=== PATIENT | female | born 1960 | race African-American/Black ===

== ENCOUNTER 2017-02-12 12:40 | Emergency (ER) | payer MEDICAID ==
[~2017-02-12] VITALS: Ht 165.1 cm; Wt 82.0 kg
[2017-02-12] MEDS ORDERED: PHEN100C4 PO (12:43)
[2017-02-12] MEDS ORDERED: KETOROLAC 60MG/2ML VIAL IM ONE (18:45)
[2017-02-12 18:46] LABS: BASOPHILS % 0.6 % (0.0-2.0); EOSINOPHILS % 0.2 % (0.0-5.0); LYMPHOCYTES % 12.9 % (20.0-50.0); MEAN CORPUSCULAR VOLUME 88.3 fL (81.0-99.0); MONOCYTES % 10.9 % (2.0-8.0); NEUTROPHILS % 75.4 % (40.0-76.0); PLATELET 185 x1000/uL (130-400); RED BLOOD CELL COUNT 5.33 mill/uL (4.2-5.4); RED CELL DISTRIBUTION WIDTH 14.7 % (11.6-14.6)
[2017-02-12 18:56] LABS: CHLORIDE 106 mEq/L (98-107)
[2017-02-12 19:02] LABS: CARBON DIOXIDE 29 mEq/L (21-32)
[2017-02-12 20:00] VITALS: BP 136/90
== END 2017-02-12 21:50 | disposition home or self-care (01) ==
LOC: ER 13:08
DX: M79.604 Pain in right leg (principal); G40.909 Epilepsy, unspecified, not intractable, without status epilepticus; I10 Essential (primary) hypertension; J45.909 Unspecified asthma, uncomplicated
CPT/HCPCS: 36415; 80048; 80185; 85025; 96372; 99284; J1885; Z7610

== ENCOUNTER 2018-01-26 09:17 | Emergency (ER) | payer MEDICAID ==
[~2018-01-26] VITALS: Ht 162.6 cm; Wt 55.0 kg
[~2018-01-26 09:17] MED LIST: FOLI-43 PO; PHEN100C4 PO; THIA100T72 PO
[2018-01-26 09:26] VITALS: BP 132/93
== END 2018-01-26 12:03 | disposition home or self-care (01) ==
LOC: ER 09:17
DX: S01.511A Laceration without foreign body of lip, initial encounter (principal); G40.909 Epilepsy, unspecified, not intractable, without status epilepticus; J45.909 Unspecified asthma, uncomplicated; W26.8XXA Contact with other sharp object(s), not elsewhere classified, initial encounter; Y93.89 Activity, other specified; Y92.488 Other paved roadways as the place of occurrence of the external cause
CPT/HCPCS: 12011; 99283

== ENCOUNTER 2018-02-02 21:48 | Emergency (ER) | payer MEDICAID ==
[~2018-02-02] VITALS: Ht 165.1 cm; Wt 81.8 kg
[2018-02-02] MEDS ORDERED: IBUPROFEN 600MG TABLET PO ONE (23:30)
[2018-02-02 23:42] LABS: BASOPHILS % 1.2 % (0.0-2.0); EOSINOPHILS % 4.4 % (0.0-5.0); HEMATOCRIT. 47.8 % (36.0-48.0); HEMOGLOBIN. 16.1 g/dL (12.0-16.0); LYMPHOCYTES % 33.9 % (20.0-50.0); MEAN CORPUSCULAR VOLUME 88.8 fL (81.0-99.0); MONOCYTES % 10.3 % (2.0-8.0); NEUTROPHILS % 50.2 % (40.0-76.0); PLATELET 200 x1000/uL (130-400); RED BLOOD CELL COUNT 5.38 mill/uL (4.2-5.4); RED CELL DISTRIBUTION WIDTH 15.4 % (11.6-14.6)
[2018-02-02 23:51] LABS: CHLORIDE 107 mEq/L (98-107)
[2018-02-03 03:17] LABS: COLOR URINE YELLOW (YELLOW)
[2018-02-03 03:18] LABS: CLARITY URINE CLOUDY (CLEAR); KETONES URINE NEGATIVE (NEGATIVE); NITRITE URINE NEGATIVE (NEGATIVE); OCCULT BLOOD URINE NEGATIVE (NEGATIVE); PH URINE 5.5 (4.5-8.0); SPECIFIC GRAVITY URINE 1.013 (1.005-1.030); UROBILINOGEN URINE 0.2 E.U./dL (0.2-1.0)
[2018-02-03 03:19] LABS: LEUKOCYTE ESTERASE URINE TRACE (NEGATIVE); PROTEIN URINE NEGATIVE (NEGATIVE)
[2018-02-03 03:47] LABS: *AMPHETAMINES SCREEN URINE NEGATIVE (NEGATIVE); *BARBITURATES SCREEN URINE NEGATIVE (NEGATIVE); *BENZODIAZEPINES SCREEN URINE NEGATIVE (NEGATIVE); *COCAINE SCREEN URINE PRESUMTIVE POSITIVE (NEGATIVE); CANNABINOID URINE SCREEN NEGATIVE (NEGATIVE); METHADONE URINE SCREEN NEGATIVE (NEGATIVE); OPIATES URINE SCREEN NEGATIVE (NEGATIVE); PHENCYCLIDINE URINE SCREEN PRESUMTIVE POSITIVE (NEGATIVE)
[2018-02-03 05:37] VITALS: BP 140/88
== END 2018-02-03 05:38 | disposition home or self-care (01) ==
LOC: ER 21:48
DX: S01.511D Laceration without foreign body of lip, subsequent encounter (principal); S00.83XD Contusion of other part of head, subsequent encounter; R07.89 Other chest pain; I50.9 Heart failure, unspecified; R56.9 Unspecified convulsions; J45.909 Unspecified asthma, uncomplicated; Z79.899 Other long term (current) drug therapy; X58.XXXD Exposure to other specified factors, subsequent encounter
CPT/HCPCS: 36415; 70450; 70486; 71045; 80053; 80305; 81003; 83880; 84484; 85025; 93005; 99285; G0482